=== PATIENT | male | born 2000 | race American Indian/Alaskan Native ===

== ENCOUNTER 2021-02-02 08:16 | Emergency (ER) | payer MEDICAID ==
[2021-02-02] MEDS ORDERED: HYDROmorphone 1 MG/ML Syringe IVPUSH ONE (08:27)
--- NOTE | 2021-02-02 08:30 | EDM.PDOC ---
ED HPI GENERAL MEDICAL PROBLEM - General Chief Complaint: Lower Extremity Injury/Pain Stated Complaint: MEDICAL VIA [facility] Time Seen by Provider: 02/02/21 08:20 Source of Information: Reports: Patient, EMS History Limitations: Reports: No Limitations - History of Present Illness INITIAL COMMENTS - FREE TEXT/NARRATIVE: 20 yo NA male while intoxicated fell about 4 am today from a standing position injuring his R hip. Unable to walk. Here via EMS after IV Toradol and 100 mcg of fentanyl. No other injuries reported. 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 (see below) (See HPI) Right Hip Pain Score (Numeric/FACES): 10 - Related Data Allergies Allergy/AdvReac Type Severity Reaction Status Date / Time No Known Allergies Allergy Verified 02/02/21 08:18 Home Meds: Home Meds NK [No Known Home Meds] 02/02/21 [History] Past Medical History - Past Health History Medical/Surgical History: Denies Medical/Surgical History Social & Family History - Tobacco Use Tobacco Use Status *Q: Current Every Day Tobacco User Years of Tobacco use: 3 Packs/Tins Daily: 1 - Caffeine Use Caffeine Use: Reports: None - Recreational Drug Use Recreational Drug Use: No Review of Systems - Review of Systems Review Of Systems: See Below Constitutional: Reports: No Symptoms Musculoskeletal: Reports: Joint Pain (R hip) Skin: Reports: No Symptoms Neurological: Reports: No Symptoms ED EXAM, GENERAL - Physical Exam Exam: See Below Exam Limited By: No Limitations General Appearance: Alert, WD/WN, Mild Distress Back Exam: Normal Inspection Extremities: No Pedal Edema, Other (R hip held in about 45 degrees of flexion, unable to move beyond this. ). No: Normal Inspection, Normal Range of Motion, Non-Tender, Pedal Edema Neurological: Alert, Oriented, CN II-XII Intact, Normal Cognition, No Motor/Sensory Deficits Psychiatric: Normal Affect, Normal Mood Skin Exam: Warm, Dry, Intact, Normal Color, No Rash Course - Vital Signs Last Recorded V/S: Last Vital Signs Temp 36.4 C 02/02/21 08:51 Pulse 82 02/02/21 09:32 Resp 12 02/02/21 09:32 BP 128/62 02/02/21 09:32 Pulse Ox 97 02/02/21 09:32 - Orders/Labs/Meds Orders: Active Orders 24 hr Category Date Time Status Hip Min 1V Rt [CR] Stat Exams 02/02/21 09:41 Ordered Hip Min 2V or 3V w Pelvis Rt [CR] Stat Exams 02/02/21 08:23 Taken Meds: Medications Discontinued Medications Generic Name Dose Route Start Last Admin Trade Name Tami PRN Reason Stop Dose Admin Hydromorphone HCl 1 mg 02/02/21 08:27 02/02/21 08:46 Hydromorphone 1 Mg/Ml Syringe IVPUSH 02/02/21 08:28 1 mg ONETIME ONE Administration Propofol Confirm 02/02/21 09:45 Propofol 200 Mg/20 Ml Sdv Administered 02/02/21 09:46 Dose 200 mg .ROUTE .STK-MED ONE - Radiology Interpretation Free Text/Narrative:: R hip [id number] Post-reduction [id number] hip dislocation Departure - Departure Time of Disposition: 10:20 Disposition: Home, Self-Care 01 Condition: Fair Clinical Impression: Hip dislocation, right Qualifiers: Encounter type: initial encounter Qualified Code(s): S73.004A - Unspecified dislocation of right hip, initial encounter - Discharge Information *PRESCRIPTION DRUG MONITORING PROGRAM REVIEWED*: Not Applicable *COPY OF PRESCRIPTION DRUG MONITORING REPORT IN PATIENT MARCELLUS: Not Applicable Instructions: Hip Dislocation Referrals: PCP,None [Primary Care Provider] - Forms: ED Department Discharge Additional Instructions: Crutch walking with gradual weight bearing as tolerated. Take ibuprofen 600 mg every 6 hrs and, if needed acetaminophen 1000 mg every 6 hrs for pain relief. Recheck with a doctor of your choice in a week if not better. Sepsis Event Note (ED) - Focused Exam Vital Signs: Vital Signs Temp Pulse Resp BP Pulse Ox 02/02/21 09:32 82 12 128/62 97 02/02/21 09:02 77 14 141/68 H 94 L 02/02/21 08:51 36.4 C 88 18 143/95 H 94 L 02/02/21 08:18 36.4 C 88 143/95 H 94 L - My Orders Last 24 Hours: My Active Orders 02/02/21 08:23 Hip Min 2V or 3V w Pelvis Rt [CR] Stat 02/02/21 09:41 Hip Min 1V Rt [CR] Stat - Assessment/Plan Last 24 Hours: My Active Orders 02/02/21 08:23 Hip Min 2V or 3V w Pelvis Rt [CR] Stat 02/02/21 09:41 Hip Min 1V Rt [CR] Stat
[2021-02-02] MEDS ORDERED: Propofol 200 MG/20 ML SDV ONE (09:45)
--- NOTE | 2021-02-02 10:18 | CR ---
Pelvis Rt CLINICAL HISTORY: Fall, pain FINDINGS: Oblique views of the pelvis shows a superior dislocation of the right femur. No fracture line is identified. Left hip appears intact IMPRESSION: Superior dislocation of the right femoral head. Hip Min 1V Rt, Hip CLINICAL HISTORY: Postreduction FINDINGS: The right femoral head dislocation has been reduced. No fracture line is seen IMPRESSION: Reduction of right hip dislocation
== END 2021-02-02 12:12 | disposition home or self-care (01) ==
LOC: JP.ED 08:16
DX: S73.004A Unspecified dislocation of right hip, initial encounter (principal); Z72.0 Tobacco use; W18.39XA Other fall on same level, initial encounter
CPT/HCPCS: 27250; 73501; 73502; 96374; 96375; 99282; 99284; J1170; J2704

== ENCOUNTER 2021-12-27 05:32 | Emergency (ER) | payer MEDICAID ==
[2021-12-27] MEDS ORDERED: Bacitracin Oint 1 GM U/D Packet TOP ONE (05:52)
[2021-12-27] MEDS ORDERED: Lidocaine 1% 5 ML VIAL INJECT ONE (05:52)
[2021-12-27] MEDS ORDERED: Diphtheria,Pertussis(Acell),Tetanus Vaccine 0.5 ML Syringe IM ONE (05:52)
== END 2021-12-27 07:22 | disposition home or self-care (01) ==
LOC: JP.ED 05:32
DX: S62.337A Displaced fracture of neck of fifth metacarpal bone, left hand, initial encounter for closed fracture (principal); S61.012A Laceration without foreign body of left thumb without damage to nail, initial encounter; S61.011A Laceration without foreign body of right thumb without damage to nail, initial encounter; S61.211A Laceration without foreign body of left index finger without damage to nail, initial encounter; S61.213A Laceration without foreign body of left middle finger without damage to nail, initial encounter; S61.217A Laceration without foreign body of left little finger without damage to nail, initial encounter; S61.216A Laceration without foreign body of right little finger without damage to nail, initial encounter; Z23 Encounter for immunization; Y04.0XXA Assault by unarmed brawl or fight, initial encounter
CPT/HCPCS: 12004; 73130-50; 90471; 90715; 99282; 99284-25

== ENCOUNTER 2023-05-02 20:07 | Emergency (ER) | payer OTHER, MEDICAID | END 2023-05-02 21:30 | disposition left against medical advice (07) | LOC: JP.ED 20:07 | DX: Z53.21 Procedure and treatment not carried out due to patient leaving prior to being seen by health care provider (principal) ==

== ENCOUNTER 2024-11-05 02:23 | Emergency (ER) | payer MEDICAID, OTHER ==
[2024-11-05 02:43] LABS: BASOPHILS ABSOLUTE AUTO 0.06 K/uL (0.00-0.10); BASOPHILS PERCENT AUTO 0.7 % (0.1-1.3); EOSINOPHILS PERCENT AUTO 0.2 % (0.0-5.4); HEMATOCRIT 43.2 % (38.4-49.7); HEMOGLOBIN 14.9 g/dL (12.9-16.9); IMMATURE GRAN PERCENT AUTO 0.2 % (0.0-0.7); LYMPHOCYTES ABSOLUTE AUTO 1.54 K/uL (0.8-3.3); LYMPHOCYTES PERCENT AUTO 16.8 % (11.4-47.7); MEAN CORPUSCULAR HEMOGLOBIN 31.4 pg (31.6-35.5); MEAN CORPUSCULAR HGB CONC 34.5 g/dL (31.6-35.5); MEAN CORPUSCULAR VOLUME 91.1 fL (81.4-99.0); MONOCYTES ABSOLUTE AUTO 0.86 K/uL (0.20-0.90); MONOCYTES PERCENT AUTO 9.4 % (3.3-12.6); NEUTROPHILS ABSOLUTE AUTO 6.69 K/uL (1.0-7.6); NEUTROPHILS PERCENT AUTO 72.7 % (40.0-78.1); PLATELET COUNT,PLT 255 K/uL (130-375); RED BLOOD CELL COUNT 4.74 M/uL (4.14-5.76); WHITE BLOOD CELL COUNT,WBC 9.2 K/uL (3.2-11.0)
[2024-11-05] MEDS: Sodium Chloride 0.9% 1,000 ML IV SCH ×2 (02:45→04:59)
[2024-11-05 02:46] LABS: EOSINOPHILS ABSOLUTE AUTO 0.02 K/uL (0.00-0.40); IMMATURE GRAN ABSOLUTE AUTO 0.02 K/uL (0.00-0.23)
[2024-11-05] MEDS: LORazepam 2 MG/ML SDV IVPUSH ONE (02:49)
[2024-11-05 02:58] LABS: A/G RATIO 1.2 (1.2-2.2); ALANINE AMINOTRANSFERASE,ALT 24 U/L (12-78); ALBUMIN 3.9 g/dL (3.4-5.0); ALKALINE PHOSPHATASE 110 U/L (46-116); ASPARTATE AMNIOTRANSFERASE,AST 31 U/L (15-37); BILIRUBIN TOTAL 0.6 mg/dL (0.2-1.0); BLOOD UREA NITROGEN,BUN 8 mg/dL (7-18); CALCIUM 8.2 mg/dL (8.5-10.1); CARBON DIOXIDE,CO2 24 mmol/L (21-32); CHLORIDE,CL 103 mmol/L (100-108); CREATININE 0.9 mg/dL (0.8-1.3); ESTIMATED GFR 122 mL/min (>60); GLUCOSE RANDOM 109 mg/dL (74-106); POTASSIUM,K 3.2 mmol/L (3.6-5.2); PROTEIN TOTAL,TP 7.1 g/dL (6.4-8.2); SODIUM,NA 141 mmol/L (140-148)
[2024-11-05 03:12] LABS: ANION GAP 17.2 mmol/L (5.0-14.0)
[2024-11-05 06:06] LABS: APPEARANCE,URINE SLIGHTLY CLOUDY (CLEAR); BILIRUBIN,URINE SMALL (NEGATIVE); COLOR,URINE YELLOW (YELLOW); GLUCOSE,URINE NEGATIVE (NEGATIVE); KETONES,URINE 80 mg/dL (NEGATIVE); LEUKOCYTE ESTERASE,URINE NEGATIVE (NEGATIVE); NITRITE,URINE NEGATIVE (NEGATIVE); OCCULT BLOOD,URINE TRACE-INTACT (NEGATIVE); PROTEIN,URINE 100 mg/dL (NEGATIVE)
[2024-11-05 06:08] LABS: AMPHETAMINES SCREEN, URINE NEGATIVE (NEGATIVE); METHAMPHETAMINES SCREEN, URINE NEGATIVE (NEGATIVE)
[2024-11-05 06:09] LABS: BARBITURATE SCREEN,URINE NEGATIVE (NEGATIVE); BENZODIAZEPINES SCREEN,URINE PRESUMPTIVE POSITIVE (NEGATIVE); METHADONE SCREEN, URINE NEGATIVE (NEGATIVE); OXYCODONE SCREEN,URINE NEGATIVE (NEGATIVE); PROPOXYPHENE SCREEN,URINE NEGATIVE (NEGATIVE); THC SCREEN,URINE 50 NG/ML PRESUMPTIVE POSITIVE (NEGATIVE)
[2024-11-05 06:15] LABS: RBC,URINE 0-5 (0-5); WBC,URINE 0-5 (0-5)
[2024-11-05 06:16] LABS: AMORPHOUS SEDIMENT,URINE NOT SEEN; BACTERIA,URINE FEW; EPITHELIAL CELLS,URINE MANY; MUCUS,URINE MANY
[2024-11-05] MEDS: Potassium Chloride 20 MEQ Tab.ER PO ONE ×2 (06:23)
== END 2024-11-05 06:30 | disposition home or self-care (01) ==
LOC: JP.ED 02:23
DX: E86.0 Dehydration (principal); E87.6 Hypokalemia; F10.930 Alcohol use, unspecified with withdrawal, uncomplicated
CPT/HCPCS: 36415; 70450; 80053; 80305; 80307; 81001; 83735; 85025; 93005; 96361; 96374; 99285; A9270; J2060; J7030; 93010; 99284